=== PATIENT | female | born 1945 | race Caucasian/White ===

== ENCOUNTER 2017-06-24 01:34 | Emergency (ER) | payer MEDICARE ==
--- OUTSIDE RECORDS SUMMARY | 2017-06-24 01:44 | XMS REPORT ---
:1945 External Reference #:[id number] Author Organization [facility] Address [address] [place] [address] Phone [phone] Care Team Providers Name Role Phone Miguelangel Noonan M.D. Care Team Information Administrative Assistant Office Manager Unavailable Maribel Jones M.D. Primary Care Physician Unavailable Payers Type Date Identification Numbers Payment Provider Subscriber Commercial Effective: Policy Number: BC/BS Of [employer] Paula Hooper 2012 [id number] Thi PayID: [id number] [place] [phone] Problems Date Description Provider Status Onset: 06/17/2016 Acute sinusitis Gus Perkins M.D. Active Onset: 06/17/2016 Body mass index 30+ - obesity Gus Perkins M.D. Active Onset: 06/03/2016 Acute upper respiratory infection, Gus Perkins M.D. Active unspecified Onset: 06/03/2016 Body mass index 30+ - obesity Gus Perkins M.D. Active Onset: 04/16/2015 Mild persistent asthma Gus Perkins M.D. Active Onset: 04/16/2015 Body mass index 25-29 - overweight Gus Perkins M.D. Active Onset: 09/06/2012 Allergic rhinitis due to pollen Gus Perkins M.D. Active Onset: 09/06/2012 Extrinsic asthma without status Gus Perkins M.D. Active asthmaticus Family History Date Family Member(s) Problem(s) Comments General Emphysema General Food Allergy General Heart Disease General Hypertension General Skin Disease/ rash Onset: (1968) Father Heart Disease heart attack Onset: (1975) Father Cancer lung cancer; d. 1976 Father Heart Disease Father Hypertension Father Skin Disease/ rash Mother Food Allergy strawberries Mother Heart Disease details unknown by me Onset: (1989) Mother Chronic Obstructive Pulmonary Disease (COPD) Onset: (1977) Mother Emphysema Onset: (1989) Mother Cancer ovarian primary, lung; d. 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 Home Environment Has a window air conditioner Home Environment Stairs are present Home Environment Unfinished Basement Home Environment The basement is damp and dehumidifier used Home Environment Cotton Comforter Home Environment Mattress is over 10 years old Home Environment Mattress is not encased in an allergy proof case Home Environment Regular Mattress air mattress Home Environment Pillows are not encased in an allergy proof case Home Environment Pillows are polyester Home Environment Does not use a dehumidifier Home Environment There are draperies in the home Home Environment The home is not ankur Home Environment The floors are carpeted Home Environment The floors are tile Home Environment The floors are wood Home Environment Uses baseboard heating Home Environment Uses hot water heating Home Environment [place] Home Environment Water Source: [facility] Smoke-Free Home is smoke-free 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 Smoking Patient has never smoked Recreational Drug Use Never Used Drugs Allergies, Adverse Reactions, Alerts Date Description Reaction Status Severity Comments 09/08/2011 Codeine active rash Medications Medication Date Status Form Strength Qnty SIG Indications Ordering Provider Augmentin 06/19/ Active Tablets 875-125mg 28tabs take 1 by May 2017 mouth twice Uldrich, a day for DIRECTOR CUSTOMER-C 14 days Xopenex HFA 06/08/ Active Aerosol 45mcg/Act 15gm 2 puffs J45.30 May 2018 inhalation Uldrich, every 6 DIRECTOR CUSTOMER-C hours as needed or 15 minutes prior to exercise Peak Flow 08/21/ Active Device J45.30 Gus Meter Abhi Perkins M.D. Asmanex 02/13/ Active Aerosol 220mcg/Inh 3units 2 puffs J45.30 [facility] Twisthaler 60 2013 once a day Perkins, Metered Doses 90 days M.D. Ventolin HFA 07/25/ Active Aerosol 108(90Base 18unit inhale 2 J45.30 Gus 2013 ) mcg/Act s puffs by Perkins, mouth every M.D. 4 hours as needed Fluticasone 01/17/ Active Suspension 50mcg/Act 3units 1 spray Eliza Propionate 2012 each Dussing, nostril DIRECTOR CUSTOMER-C daily Simvastatin / Active Tablets 20mg 1 po 4 Unknown 0000 times a week Diazepam / Active Tablets 2mg as needed Unknown 0000 Potassium / Active Tablets ER 20Meq twice a day Unknown Chloride 0000 Aspirin / Active Tablets 81mg one tablet Unknown 0000 daily Vitamin D3 / Active Capsules 1000Unit 1 capsule Unknown 0000 by mouth twice daily Fluoxetine / Active Capsules 20mg one tablet Unknown HCL 0000 daily Iron (Ferrous / Active Tablets ER 142(45Fe) once a day Unknown Sulfate) 0000 mg Symbicort / Active Aerosol 160-4.5mcg 2 puffs Unknown 0000 /Act inhalation twice a day Medications Administered in Office Medication Date Status Form Strength Qnty SIG Indications Ordering Provider Celestone/Burt Administered Injection Kenyatta Graham, [id number] 1 M.DGuanaco cc Immunizations CPT Code Status Date Vaccine Lot # [id number] Given 01/30/2013 Influenza Vaccine 89305 Given 06/01/2011 Pneumococcal Vaccine 50448 Given Unknown Pneumococcal Vaccine 66488 Given Unknown Influenza Vaccine 08133 Given Unknown Influenza Vaccine 98360 Given Unknown Influenza Vaccine Vital Signs Date Vital Result Comment 06/19/2017 Height 62 inches 5'2" Weight 181.00 lb Weight in kg's 82.102 Respiratory Rate 18 /min Heart Rate 79 /min O2 % BldC Oximetry 96 % BP Systolic 152 mmHg Rechecked 148/80 BP Diastolic 69 mmHg Rechecked 148/80 Asthma Control Test 20 BMI (Body Mass Index) 33.1 kg/m2 06/17/2017 Height 62 inches 5'2" Weight 181.12 lb Weight in kg's 82.158 Respiratory Rate 20 /min Heart Rate 89 /min O2 % BldC Oximetry 95 % BP Systolic 150 mmHg manual BP Diastolic 78 mmHg manual Asthma Control Test 11 BMI (Body Mass Index) 33.1 kg/m2 06/08/2017 Height 62 inches 5'2" Weight 182.00 lb Weight in kg's 82.555 Respiratory Rate 20 /min Heart Rate 74 /min O2 % BldC Oximetry 96 % BP Systolic 138 mmHg BP Diastolic 78 mmHg Asthma Control Test 17 BMI (Body Mass Index) 33.3 kg/m2 11/17/2016 Height 62 inches 5'2" Weight 179.00 lb Weight in kg's 81.194 Respiratory Rate 20 /min Heart Rate 85 /min O2 % BldC Oximetry 97 % BP Systolic 115 mmHg BP Diastolic 65 mmHg Asthma Control Test 25 BMI (Body Mass Index) 32.7 kg/m2 06/17/2016 Height 62 inches 5'2" Weight 171.00 lb Weight in kg's 77.566 Respiratory Rate 75 /min Heart Rate 16 /min O2 % BldC Oximetry 96 % BP Systolic 157 mmHg BP Diastolic 85 mmHg BMI (Body Mass Index) 31.3 kg/m2 06/03/2016 Height 62 inches 5'2" Weight 171.12 lb Weight in kg's 77.622 Respiratory Rate 20 /min Heart Rate 81 /min Body Temperature 99.1 F O2 % BldC Oximetry 95 % BP Systolic 153 mmHg BP Diastolic 79 mmHg Asthma Control Test 18 BMI (Body Mass Index) 31.3 kg/m2 10/15/2015 Height 61.5 inches 5'1.50" Weight 160.00 lb Weight in kg's 72.576 Respiratory Rate 18 /min Heart Rate 64 /min O2 % BldC Oximetry 98 % BP Systolic 157 mmHg BP Diastolic 91 mmHg Asthma Control Test 23 BMI (Body Mass Index) 29.7 kg/m2 04/16/2015 Height 61.5 inches 5'1.50" Weight 160.00 lb Weight in kg's 72.576 Respiratory Rate 20 /min Heart Rate 69 /min O2 % BldC Oximetry 98 % BP Systolic 155 mmHg BP Diastolic 82 mmHg Asthma Control Test 24 BMI (Body Mass Index) 29.7 kg/m2 08/21/2014 Height 61.5 inches 5'1.50" Weight 180.00 lb Weight in kg's 81.648 Respiratory Rate 20 /min Heart Rate 64 /min O2 % BldC Oximetry 98 % BP Systolic 170 mmHg BP Diastolic 90 mmHg Asthma Control Test 23 BMI (Body Mass Index) 33.5 kg/m2 02/13/2014 Height 61 inches 5'1" Weight 186.00 lb Weight in kg's 84.370 Respiratory Rate 18 /min Heart Rate 84 /min O2 % BldC Oximetry 97 % BP Systolic 140 mmHg BP Diastolic 86 mmHg Asthma Control Test 22 BMI (Body Mass Index) 35.1 kg/m2 07/25/2013 Height 62 inches 5'2" Weight 182.00 lb Weight in kg's 82.555 Respiratory Rate 16 /min Heart Rate 75 /min O2 % BldC Oximetry 98 % BP Systolic 132 mmHg BP Diastolic 88 mmHg BMI (Body Mass Index) 33.3 kg/m2 01/17/2013 Height 62 inches 5'2" Weight 186.00 lb Weight in kg's 84.370 Respiratory Rate 16 /min Heart Rate 78 /min O2 % BldC Oximetry 97 % BP Systolic 136 mmHg BP Diastolic 82 mmHg BMI (Body Mass Index) 34.0 kg/m2 09/06/2012 Height 62 inches 5'2" Weight 190.00 lb Weight in kg's 86.184 Respiratory Rate 18 /min Heart Rate 88 /min O2 % BldC Oximetry 96 % BP Systolic 138 mmHg BP Diastolic 74 mmHg BMI (Body Mass Index) 34.7 kg/m2 05/07/2012 Respiratory Rate 16 /min Heart Rate 72 /min Results Description No Information Procedures Date CPT Code Description Status 06/19/2017 99107 Ippb Completed 06/17/2017 16987 Ippb Completed 06/08/2017 27790 Pre PFT Completed 11/17/2016 42823 Pre PFT Completed 06/03/2016 68928 Pre PFT Completed 10/15/2015 33568 Pre PFT Completed 04/16/2015 39673 Pre PFT Completed 08/21/2014 04142 Pre PFT Completed 02/13/2014 79477 Pre PFT Completed 01/17/2013 64688 Oxygen Level - Pulse Oximiter Completed 09/06/2012 82686 Oxygen Level - Pulse Oximiter Completed 06/07/2012 06871 Oxygen Level - Pulse Oximiter Completed 06/07/2012 24856 Pulmonary Function Test Completed 09/15/2011 73078 Skin Tests Id Completed 09/08/2011 14614 Skin Test Scratch # Of Units ____ Completed Encounters Type Date Location Provider [facility] E/M Dx Office Visit 06/19/2017 2:20p NORMAN [place] 85732 J01.90 J30.1 J45.31 Office Visit 06/17/2017 11:00a Lee Graham M.D. 29502 J45.31 J30.1 J01.90 Office Visit 06/08/2017 10:20a NORMAN Warren 88642 J45.30 J30.1 Office Visit 11/17/2016 11:00a Lee Perkins M.D. 86235 J30.1 J45.30 Z68.32 Office Visit 06/17/2016 9:00a Lee Perkins M.D. 26581 J30.1 J01.90 J45.30 Z68.31 Office Visit 06/03/2016 11:20a Lee Perkins M.D. 96314 J45.30 J06.9 Z68.31 Office Visit 10/15/2015 4:40p Lee Perkins M.D. 86082 J30.1 J45.30 Z68.29 Office Visit 04/16/2015 11:20a Lee Perkins M.D. 70568 Z68.29 J30.1 J45.30 Office Visit 08/21/2014 4:40p Lee Perkins M.D. 27456 493.00 477.0 Office Visit 02/13/2014 11:40a Lee Perkins M.D. 97192 493.00 493.00 Office Visit 07/25/2013 11:00a Lee Perkins M.D. 64488 493.00 477.0 Office Visit 01/17/2013 11:00a Lee Perkins M.D. 49277 493.00 Office Visit 09/06/2012 11:00a Lee Perkins M.D. 59264 493.00 477.0 Office Visit 09/08/2011 10:00a Lee Perkins M.D. 78837 477.0 493.00 995.60 Plan of Care Future Appointment(s):09/02/2017 3:00 pm - Kenyatta Graham M.D. at [id number] 10:00 am - NORMAN Soriano at [id number]/19/2017 - TAMMY Soriano-CJ01.90 Acute sinusitis, lqvadwymydrA89.1 Allergic rhinitis due to jbhuswX55.31 Mild persistent asthma with (acute) exacerbationNew Medication: Augmentin 875-125 mgRecommendations:Continue all medications as prescribed.Refrain from wearing perfumes/scented colognes while visitingour office. Start the Augmentin 1 po twice a day Start the Prednisone that Dr. Graham gave you tomorrow morning Continue the Asmanex for now Continue the Fluticasone 2 sprays daily Continue the Claritin 1 as needed Continue the Ventolin 2 puffs every 4 hours as needed for cough, shortness of breath, chest congestion,or wheezing. Monitor Albuterol use. If using more than 2x/week, please call the office as your asthma medications may need to be adjusted.
--- OUTSIDE RECORDS SUMMARY | 2017-06-24 01:44 | XMS REPORT ---
:1945 External Reference #:[id number] Author Organization [facility] Address [address] [place] [address] Phone [phone] Care Team Providers Name Role Phone Miguelangel Noonan M.D. Care Team Information Energy Crop Farmer Unavailable Maribel Jones M.D. 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 Smoking Patient has never smoked Recreational Drug Use Never Used Drugs Allergies, Adverse Reactions, Alerts Date Description Reaction Status Severity Comments 09/08/2011 Codeine active rash Medications Medication Date Status Form Strength Qnty SIG Indications Ordering Provider Xopenex HFA 06/08/ Active Aerosol 45mcg/Act 15gm 2 puffs J45.30 May 2018 inhalation Uldrich, every 6 WRECKER DRIVER-C hours as needed or 15 minutes prior to exercise Peak Flow 08/21/ Active Device J45.30 Gus Meter 2015 Keegan Perkins Asmanex 02/13/ Active Aerosol 220mcg/Inh 3units 2 puffs J45.30 Gus Twisthaler 60 2013 once a day Perkins, Metered Doses 90 days M.D. Ventolin HFA 07/25/ Active Aerosol 108(90Base 18unit inhale 2 J45.30 Gus 2013 ) mcg/Act s puffs by Perkins, mouth every M.D. 4 hours as needed Fluticasone 01/17/ Active Suspension 50mcg/Act 3units 1 spray Eliza Propionate 2012 each Dussing, nostril WRECKER DRIVER-C daily Simvastatin / Active Tablets 20mg 1 [...] once a day Unknown Sulfate) 0000 mg Immunizations CPT Code Status Date Vaccine Lot # [id number] Given 01/30/2013 Influenza Vaccine 77227 Given 06/01/2011 Pneumococcal Vaccine 91437 Given Unknown Pneumococcal Vaccine 99967 Given Unknown Influenza Vaccine 22210 Given Unknown Influenza Vaccine 69165 Given Unknown Influenza Vaccine Vital Signs Date Vital Result Comment 06/08/2017 Height 62 inches 5'2" Weight 182.00 [...] Information Procedures Date CPT Code Description Status 06/08/2017 44774 Pre PFT Completed 11/17/2016 26038 Pre PFT Completed 06/03/2016 13708 Pre PFT Completed 10/15/2015 23366 Pre PFT Completed 04/16/2015 89676 Pre PFT Completed 08/21/2014 06226 Pre PFT Completed 02/13/2014 26450 Pre PFT Completed 01/17/2013 40431 Oxygen Level - Pulse Oximiter Completed 09/06/2012 79375 Oxygen Level - Pulse Oximiter Completed 06/07/2012 92247 Oxygen Level - Pulse Oximiter Completed 06/07/2012 97581 Pulmonary Function Test Completed 09/15/2011 66454 Skin Tests Id Completed 09/08/2011 32666 Skin Test Scratch # Of Units ____ Completed Encounters Type Date Location Provider CPT E/M Dx Office Visit 06/08/2017 10:20a NORMAN Warren 48110 J45.30 J30.1 Office Visit 11/17/2016 11:00a Lee Perkins M.D. 61087 J30.1 J45.30 Z68.32 Office Visit 06/17/2016 9:00a Lee Perkins M.D. 80150 J30.1 J01.90 J45.30 Z68.31 Office Visit 06/03/2016 11:20a Lee Perkins M.D. 38220 J45.30 J06.9 Z68.31 Office Visit 10/15/2015 4:40p Lee Perkins M.D. 71712 J30.1 J45.30 Z68.29 Office Visit 04/16/2015 11:20a Lee Perkins M.D. 26865 Z68.29 J30.1 J45.30 Office Visit 08/21/2014 4:40p Lee Perkins M.D. 85017 493.00 477.0 Office Visit 02/13/2014 11:40a Lee Perkins M.D. 24743 493.00 493.00 Office Visit 07/25/2013 11:00a Lee Perkins M.D. 25109 493.00 477.0 Office Visit 01/17/2013 11:00a Lee Perkins M.D. 51124 493.00 Office Visit 09/06/2012 11:00a Lee Perkins M.D. 06780 493.00 477.0 Office Visit 09/08/2011 10:00a Lee Perkins M.D. 50146 477.0 493.00 995.60 Plan of Care Future Appointment(s):12/07/2017 10:00 am - NORMAN Soriano at [id number]/2017 - TAMMY Soriano-CJ45.30 Mild persistent asthma, okforpofwtdweH40.1 Allergic rhinitis due to pollenNew Medication:Xopenex HFA 45 mcg/ActRecommendations:Continue all medications as prescribed.Refrain from wearing perfumes/scented colognes while visitingour office. Continue the Asmanex for now Continue the Fluticasone 2 sprays daily Continue the Claritin 1 as needed Continue the Ventolin 2 puffs every 4 hours as needed for cough, shortness of breath, chest congestion,or wheezing. Monitor Albuterol use. If using more than 2x/week, please call the office as your asthma medications may need to be adjusted. I have sent in Xopenex which does not makeher heart race. You will not need to worry about using the medication when you need it
--- OUTSIDE RECORDS SUMMARY | 2017-06-24 01:44 | XMS REPORT ---
:1945 External Reference #:[id number] Author Organization [facility] Address [address] [place] [address] Phone [phone] Care Team Providers Name Role Phone Miguelangel Noonan M.D. 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 Primary Care Physician Unavailable Payers Type Date Identification Numbers Payment Provider Subscriber Commercial Effective: Policy Number: BC/BS Of [employer] Paula Hooper 2012 [id number] Thi PayID: [id number] [place] [address] Problems Date Description Provider Status Onset: 06/17/2016 [...] Lives With Spouse Home Environment Uses air lathe hand Home Environment Has a window air conditioner [...] [place] Home Environment Water Source: [facility] Smoke-Free Home is smoke-free Pets None Occupation [...] J45.30 May 2018 inhalation Uldrich, every 6 FOREPART REDUCER-C hours as needed or 15 minutes prior [...] spray Eliza Propionate 2012 each Dussing, nostril FOREPART REDUCER-C daily Simvastatin / Active Tablets 20mg 1 [...] Indications Ordering Provider Celestone/Burt Administered Injection Kenyatta Quevedo Kingsburyvaldez, [id number] 1 M.DGuanaco cc Immunizations CPT Code Status Date Vaccine Lot # [id number] Given 01/30/2013 Influenza Vaccine 67561 Given 06/01/2011 Pneumococcal Vaccine 25576 Given Unknown Pneumococcal Vaccine 09472 Given Unknown Influenza Vaccine 29705 Given Unknown Influenza Vaccine 77859 Given Unknown Influenza Vaccine Vital Signs Date Vital Result Comment 06/17/2017 Height 62 inches 5'2" Weight 181.12 [...] Information Procedures Date CPT Code Description Status 06/17/2017 96354 Ippb Completed 06/08/2017 17735 Pre PFT Completed 11/17/2016 34525 Pre PFT Completed 06/03/2016 32674 Pre PFT Completed 10/15/2015 64038 Pre PFT Completed 04/16/2015 20792 Pre PFT Completed 08/21/2014 04771 Pre PFT Completed 02/13/2014 61620 Pre PFT Completed 01/17/2013 27561 Oxygen Level - Pulse Oximiter Completed 09/06/2012 90289 Oxygen Level - Pulse Oximiter Completed 06/07/2012 50791 Oxygen Level - Pulse Oximiter Completed 06/07/2012 94813 Pulmonary Function Test Completed 09/15/2011 41890 Skin Tests Id Completed 09/08/2011 01586 Skin Test Scratch # Of Units ____ Completed Encounters Type Date Location Provider CPT E/M Dx Office Visit 06/08/2017 10:20a NORMAN Warren 53445 J45.30 J30.1 Office Visit 11/17/2016 11:00a Lee Perkins M.D. 15876 J30.1 J45.30 Z68.32 Office Visit 06/17/2016 9:00a Lee Perkins M.D. 74517 J30.1 J01.90 J45.30 Z68.31 Office Visit 06/03/2016 11:20a Lee Perkins M.D. 65982 J45.30 J06.9 Z68.31 Office Visit 10/15/2015 4:40p Lee Perkins M.D. 49660 J30.1 J45.30 Z68.29 Office Visit 04/16/2015 11:20a Lee Perkins M.D. 75477 Z68.29 J30.1 J45.30 Office Visit 08/21/2014 4:40p Lee Perkins M.D. 67941 493.00 477.0 Office Visit 02/13/2014 11:40a Lee Perkins M.D. 05186 493.00 493.00 Office Visit 07/25/2013 11:00a Lee Perkins M.D. 80031 493.00 477.0 Office Visit 01/17/2013 11:00a Lee Perkins M.D. 15565 493.00 Office Visit 09/06/2012 11:00a Lee Perkins M.D. 72271 493.00 477.0 Office Visit 09/08/2011 10:00a Lee Perkins M.D. 60897 477.0 493.00 995.60 Plan of Care Future Appointment(s):09/02/2017 3:00 pm - Kenyatta Graham M.D. at [id number] 10:00 am - NORMAN Soriano at [id number]/17/2017 - Kenyatta Graham M.D.J45.31 Mild persistent asthma with (acute) ncxyryponfzyM60.1 Allergic rhinitis due to xgonztW85.90 Acute sinusitis, unspecifiedFollow up:6-8 weeks CHECK-UP/FOLLOW UP VISIT: Continued management of patient's medical care. PRERecommendations:IBBP levalbuterol 1.25 and ipratropium given in office with improved air entry, persistent wheeze. Since you were shaky we then administered ipratropium with further air entry Celestone 1 cc IM now Start Symbicort 160/4.5 2 puffs twice daily with the holding chamber. Once this is gone, go back to the Asmanex 1 inhalation twice daily Use the Xopenex inhaler with the holding chamber 2 puffs every 4- 6 hours as needed for cough/wheeze or trouble breathing IF NOT A LOT BETTER BY THURSDAY start prednisone 5 mg tabs Take 8 tablets daily for 5 days with food and check back thursday if not better for ataper or appt if needed Please also call to check in when needed
--- OUTSIDE RECORDS SUMMARY | 2017-06-24 01:44 | XMS REPORT ---
:1945 External Reference #:[id number] Author Organization [facility] Address [address] [place] [address] Phone [phone] Care Team Providers Name Role Phone Miguelangel Noonan M.D. 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 Smoking Patient has never smoked Recreational Drug Use Never Used Drugs Allergies, Adverse Reactions, Alerts Date Description Reaction Status Severity Comments 09/08/2011 Codeine active rash Medications Medication Date Status Form Strength Qnty SIG Indications Ordering Provider Tessalon 06/22/ Active Capsules 100mg 30caps 1 by mouth May Perl2017 three times [place], a day [employer] Augmentin 06/19/ Active Tablets 875-125mg 28tabs take 1 by May 2018 mouth twice [place]rich, a day for [employer] 14 days Xopenex HFA 06/08/ Active Aerosol 45mcg/Act 15gm 2 puffs J45.30 May 2018 inhalation Uldrich, every 6 [employer] hours as needed or 15 minutes prior to exercise Peak Flow 08/21/ Active Device J45.30 Gus Meter 2014 Keegan Perkins Asmanex 02/13/ Active Aerosol 220mcg/Inh 3units 2 puffs J45.30 Gus Twisthaler 60 2013 once a day Perkins, Metered Doses 90 days M.D. Ventolin HFA 07/25/ Active Aerosol 108(90Base 18unit inhale 2 J45.30 Gus 2013 ) mcg/Act s puffs by Perkins, mouth every M.D. 4 hours as needed Fluticasone 01/17/ Active Suspension 50mcg/Act 3units 1 spray Eliza Propionate 2012 each [place], nostril [employer] daily Simvastatin / Active Tablets 20mg 1 po 4 Unknown 0000 times a week Diazepam 00/ Active Tablets 2mg as needed Unknown 0000 [...] Ordering Provider Celestone/Burt Administered Injection Kenyatta Graham, [id number] Sue Allison cc Immunizations CPT Code Status Date Vaccine Lot # [id number] Given 01/30/2013 Influenza Vaccine 08139 Given 06/01/2011 Pneumococcal Vaccine 19294 Given Unknown Pneumococcal Vaccine 62610 Given Unknown Influenza Vaccine 96270 Given Unknown Influenza Vaccine 70453 Given Unknown Influenza Vaccine Vital Signs Date [...] Procedures Date CPT Code Description Status 06/19/2017 41701 Ippb Completed 06/19/2017 65814 Ippb Completed 06/17/2017 59001 Ippb Completed 06/08/2017 56932 Pre PFT Completed 11/17/2016 20120 Pre PFT Completed 06/03/2016 12475 Pre PFT Completed 10/15/2015 09679 Pre PFT Completed 04/16/2015 21303 Pre PFT Completed 08/21/2014 03808 Pre PFT Completed 02/13/2014 75929 Pre PFT Completed 01/17/2013 89043 Oxygen Level - Pulse Oximiter Completed 09/06/2012 05835 Oxygen Level - Pulse Oximiter Completed 06/07/2012 84379 Oxygen Level - Pulse Oximiter Completed 06/07/2012 85468 Pulmonary Function Test Completed 09/15/2011 39283 Skin Tests Id Completed 09/08/2011 16796 Skin Test Scratch # Of Units ____ Completed Encounters Type Date Location Provider CPT E/M Dx Office Visit 06/19/2017 2:20p NORMAN Warren 79309 J01.90 J30.1 J45.31 Office Visit 06/17/2017 11:00a Lee Graham M.D. 47584 J45.31 J30.1 J01.90 Office Visit 06/08/2017 10:20a NORMAN Warren 85126 J45.30 J30.1 Office Visit 11/17/2016 11:00a Lee Perkins M.D. 07652 J30.1 J45.30 Z68.32 Office Visit 06/17/2016 9:00a Lee Perkins M.D. 31598 J30.1 J01.90 J45.30 Z68.31 Office Visit 06/03/2016 11:20a Lee Perkins M.D. 15544 J45.30 J06.9 Z68.31 Office Visit 10/15/2015 4:40p Lee Perkins M.D. 92430 J30.1 J45.30 Z68.29 Office Visit 04/16/2015 11:20a Lee Prekins M.D. 44224 Z68.29 J30.1 J45.30 Office Visit 08/21/2014 4:40p Lee Perkins M.D. 25199 493.00 477.0 Office Visit 02/13/2014 11:40a Lee Perkins M.D. 29077 493.00 493.00 Office Visit 07/25/2013 11:00a Lee Perkins M.D. 57875 493.00 477.0 Office Visit 01/17/2013 11:00a Lee Perkins M.D. 32329 493.00 Office Visit 09/06/2012 11:00a Lee Perkins M.D. 69384 493.00 477.0 Office Visit 09/08/2011 10:00a Lee Perkins M.D. 03991 477.0 493.00 995.60 Plan of Care Future Appointment(s):09/02/2017 3:00 pm - Kenyatta Graham M.D. at [id number] 10:00 am - NORMAN Soriano at [id number]/19/2017 - TAMMY Soriano-CJ01.90 Acute sinusitis, gmjbqkliudtJ73.1 Allergic rhinitis due to lqqgybB47.31 Mild persistent asthma with (acute) exacerbationNew Medication: Augmentin 875-125 mgRecommendations:Continue all medications as prescribed.Refrain from wearing perfumes/scented colognes while visitingour office. Duoneb now x2 Start the Augmentin 1 po twice a day Start the Prednisone that Dr. Graham gave you tomorrow morning Continue the Asmanex for now Continue the Fluticasone 2 sprays dailyContinue the Claritin 1 as needed Continue the Ventolin 2 puffs every 4 hours as needed for cough,shortness of breath, chest congestion,or wheezing. Monitor Albuterol use. If using more than 2x/week, please call the office as your asthma medications may need to be adjusted.
[2017-06-24 03:48] VITALS: BP 181/79
--- NOTE | 2017-06-24 05:59 | ED ---
Ray Vallejo Julia, scribed for Josue Oseguera MD on 06/24/17 at 0327 . Allergic Reaction/Systemic - HPI Summary HPI Summary: This patient is a 71 year old F presenting to [facility] accompanied by with a chief complaint of allergic reaction since 23:00 06/23/17. Patient reports hot face, pruritic ears, dry mouth, facial redness, and rash on chest. Patient denies SOB. Patient self-medicated with 50mg of Benadryl around 1 :00 06/24/17. Patient was recently prescribed with prednisone; she states she had a prednisone shot on 06/17/17. Patient experiences increased anxiety and BP around doctors. - History of Current Complaint Chief Complaint: EDRashSkinAbscess Time Seen by Provider: 06/24/17 02:34 Hx Obtained From: Patient Onset/Duration: Started hours ago, Still Present Timing: Constant Pain Intensity: 0 Pain Scale Used: 0-10 Numeric Location: Diffuse - face, ears, chest Character: Pruritus Alleviating Factor(s): Antihistamines Associated Signs And Symptoms: Negative: Difficulty Breathing - Related Hx Possible Reaction To: Medications - Allergies/Home Medications Allergies/Adverse Reactions: Allergies Allergy/AdvReac Type Severity Reaction Status Date / Time Codeine Allergy Intermediate Rash And Verified 02/08/15 08:33 Itching ENVIRONMENTAL Allergy COUGH, RED Uncoded 02/08/15 08:33 EYES PMH/Surg Hx/FS Hx/Imm Hx Endocrine/Hematology History: Denies: Hx Anticoagulant Therapy, Hx Diabetes, Hx Thyroid Disease Cardiovascular History: Reports: Hx Angina - chest pressure, Hx Hypercholesterolemia, Hx Hypertension - NO MEDS, MONITORS, Other Cardiovascular Problems/Disorders - 2012 ? A-FIB GIVEN METOPROLOL TO TAKE IN CASE OF RECURRENCE Denies: Hx Pacemaker/ICD, Hx Peripheral Vascular Disease, Hx Valvular Heart Disease Respiratory History: Reports: Hx Asthma - Dx in 2011, HAS INHALER Denies: Hx Chronic Obstructive Pulmonary Disease (COPD), Other Respiratory Problems/Disorders GI History: Reports: Hx Ulcer - 1960 Tx WITH DIET/MEDS, Denies: Other GI Disorders History: Denies: Hx Renal Disease Musculoskeletal History: Reports: Hx Arthritis - OSTEOARTHRITIS, HANDS, SPINE, HIPS, ANKLES, Hx Back Problems - Osteitis Symphasis, Hx Osteoporosis Denies: Hx Rheumatoid Arthritis, Other Musculoskeletal History Sensory History: Reports: Hx Cataracts - RUCHI Denies: Hx Contacts or Glasses, Hx Glaucoma, Hx Hearing Aid Opthamlomology History: Reports: Hx Cataracts - RUCHI Denies: Hx Contacts or Glasses, Hx Glaucoma Neurological History: Denies: Hx Dementia, Hx Headaches, Hx Seizures, Hx Transient Ischemic Attacks (TIA), Other Neuro Impairments/Disorders Psychiatric History: Reports: Hx Anxiety - ON MEDS, Hx Depression Denies: Hx Substance Abuse - Cancer History Cancer Type, 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 Hx Chemotherapy: No Hx Radiation Therapy: No - Surgical History Surgery Procedure, Year, and Place: SPINE Hx Anesthesia Reactions: No Infectious Disease History: Yes Infectious Disease History: Reports: Hx Hepatitis - 1997 R/T TAKING NIASPAN, NO PROBLEMS SINCE Denies: Hx Human Immunodeficiency Virus (HIV), Traveled Outside the [place] in Last 30 Days - Social History Alcohol Use: None Hx Substance Use: No Substance Use Type: Reports: None Hx Tobacco Use: No Smoking Status (MU): Never Smoked Tobacco Have You Smoked in the Last Year: No Review of Systems Positive: Ear Ache - pruitic ears, Other - dry mouth Negative: Shortness Of Breath Positive: Rash - chest, Other - errythmea and "hot" face Positive: Anxious All Other Systems Reviewed And Are Negative: Yes Physical Exam Triage Information Reviewed: Yes Vital Signs On Initial Exam: Initial Vitals Temp Pulse Resp BP Pulse Ox 98.2 F 73 20 207/105 96 06/24/17 01:36 06/24/17 01:36 06/24/17 01:36 06/24/17 01:36 06/24/17 01:36 Vital Signs Reviewed: Yes Appearance: Positive: Well-Appearing Skin: Positive: Erythema @ - face and chest, Other - chest rash Head/Face: Positive: Normal Head/Face Inspection Eyes: Positive: Normal ENT: Positive: Normal ENT inspection Respiratory/Lung Sounds: Positive: Clear to Auscultation, Breath Sounds Present Cardiovascular: Positive: Normal Abdomen Description: Positive: Nontender Musculoskeletal: Positive: Normal Neurological: Positive: Normal Psychiatric: Positive: Anxious AVPU Assessment: Alert Diagnostics - Vital Signs Vital Signs Temp Pulse Resp BP Pulse Ox 06/24/17 01:36 98.2 F 73 20 207/105 96 - Laboratory Lab Statement: Any lab studies that have been ordered have been reviewed, and results considered in the medical decision making process. Allergic Reaction Course/Dx - Course Course Of Treatment: Patient presents with hot face, pruritic ears, dry mouth , facial redness, and rash on chest. Patient denies SOB. She was recently prescribed prednisone.Patient self-medicated with 50mg of Benadryl around 1:00. Patient improved in ED. Pt was dischared with dx of allergic reaction. - Diagnoses Provider Diagnoses: Allergic reaction Discharge - Discharge Plan Condition: Stable Disposition: HOME Patient Education Materials: General Allergic Reaction (ED) Referrals: Maribel Tovar MD [Primary Care Provider] - Additional Instructions: RETURN TO THE EMERGENCY DEPARTMENT FOR CHANGING OR WORSENING SYMPTOMS. The documentation as recorded by the Ray odell Julia accurately reflects the service I personally performed and the decisions made by , Josue Oseguera MD.
== END 2017-06-24 03:50 | disposition home or self-care (01) ==
LOC: ED 01:34
DX: T78.40XA Allergy, unspecified, initial encounter (principal); R21 Rash and other nonspecific skin eruption; X58.XXXA Exposure to other specified factors, initial encounter; Z88.5 Allergy status to narcotic agent
CPT/HCPCS: 99282